=== PATIENT | male | born 1960 | race Caucasian/White ===

== ENCOUNTER → 2018-12-25 | Day surgery (SDC) | payer OTHER ==
[~2018-12-25] MED LIST: ALBU2.5V14 NEB; ALFU10TA3 PO; CETI10TA22 PO; FLUT1DIS3 IH; IV RINGERS,LACTATED 1000ML 1,000 ML IV SCH; LIDOCAINE 2% PF 5 ML VIAL. ONE; MONT10TA9 PO; OMEP40CA5 PO; PROPOFOL 40 ML IV ONE; RANI-376 PO; TELM1TAB3 PO; TEST60GE TD
[2018-12-25 14:15] VITALS: BP 131/69
--- NOTE | 2018-12-26 02:42 | CONS ---
DATE OF CONSULTATION: 12/25/2018 GASTROENTEROLOGY CONSULTATION REFERRING PHYSICIAN: Dr. Derrek Shay. REASON FOR CONSULTATION: Colorectal screening. HISTORY OF PRESENT ILLNESS: This is a 58-year-old male, whose past medical history is significant for asthma, gastroesophageal reflux disease, is seen for colonoscopy. He has had one done approximately 10 years ago, which was unrevealing at that time for polyps or cancers. Weight and appetite are stable. He had 1 episode of bleeding approximately a week ago. There is no family history of colon polyps or colon cancer. He is otherwise without additional complaints. PAST MEDICAL HISTORY: GERD, asthma, osteoarthritis. ALLERGIES: ADRIAN INHIBITORS. MEDICATIONS: Include albuterol, cetirizine, Advair, montelukast, omeprazole, ranitidine, telmisartan, hydrochlorothiazide and testosterone. FAMILY AND SOCIAL HISTORY: Significant for breast cancer with his mother, high blood pressure with multiple family members. Former smoker, nondrinker. REVIEW OF SYSTEMS: Per records. PHYSICAL EXAMINATION: GENERAL: Reveals a well-nourished, well-developed male who is alert, cooperative, in no acute distress. VITAL SIGNS: Temperature 97, pulse 80, respiratory rate is 18. HEENT: Reveals normocephalic, atraumatic head. Pupils and extraocular muscles are not tested. Sclerae anicteric. NECK: Supple. LUNGS: Clear. CARDIOVASCULAR: Reveals an S1, S2 without S3, S4 or appreciable murmur. ABDOMEN: Reveals soft abdomen, normal bowel sounds without appreciable hepatosplenomegaly. EXTREMITIES: Reveals no cyanosis, clubbing or edema. IMPRESSION: Colorectal screening is warranted at this time. Risks and benefits of procedure were discussed with the patient including risk of hemorrhage and perforation at the time of operation. He is willing to proceed. ELIZABETH OQUENDO MD DR: JOHN/jimena JOB#: [id number] / [id number]
== END | disposition home or self-care (01) ==
LOC: SURG 12:30
PROVIDERS: ATTEND Internal Medicine Gastroenterology
DX: Z12.11 Encounter for screening for malignant neoplasm of colon (principal); K64.0 First degree hemorrhoids; K63.89 Other specified diseases of intestine; K21.9 Gastro-esophageal reflux disease without esophagitis; J45.909 Unspecified asthma, uncomplicated; I10 Essential (primary) hypertension; G47.33 Obstructive sleep apnea (adult) (pediatric); Z79.899 Other long term (current) drug therapy; Z87.39 Personal history of other diseases of the musculoskeletal system and connective tissue; Z88.8 Allergy status to other drugs, medicaments and biological substances; Z98.890 Other specified postprocedural states
CPT/HCPCS: 45378; J2001; J2704